=== PATIENT | male | born 1975 | race Caucasian/White ===

== ENCOUNTER → 2020-04-02 08:25 | Outpatient (BNVA) | payer OTHER, SELFPAY | PROVIDERS: PCP Internal Medicine; Visit Provider Student in an Organized Health Care Education/Training Program | DX: Z13.89 Encounter for screening for other disorder (principal) | CPT/HCPCS: Q3014 ==

== ENCOUNTER 2020-04-02 09:02 | Outpatient (REF) | payer OTHER, SELFPAY ==
--- NOTE | 2020-04-02 09:34 | XR_ITS ---
EXAMINATION: XR CHEST CLINICAL INFORMATION: Abnormal immune findings. COMPARISON: None TECHNIQUE: 2 views of the chest were obtained. FINDINGS: No significant abnormality is noted involving the heart, lungs, mediastinum, bony thorax or soft tissues. XR/XR chest 2V IMPRESSION: No acute disease.
[2020-04-02 10:02] LABS: MANUAL DIFF FLAG NO
[2020-04-02 10:08] LABS: Basophils Absolute Auto 0.1 X10*3/uL (0.0-0.2); Basophils Percent Auto 0.7 % (0-2); Eosinophils Absolute Auto 0.1 X10*3/uL (0.0-0.4); Eosinophils Percent Auto 1.9 % (0-4); Hematocrit 44.7 % (42-52); Hemoglobin 15.4 g/dl (14.0-18.0); Imm Gran Abs Auto 0.06 X10*3/uL (0.00-0.03); Imm Gran Pct Auto 0.8 % (0.0-0.4); Lymphocytes Absolute Auto 1.9 X10*3/uL (1.2-4.9); Lymphocytes Percent Auto 25.5 % (20-40); Mean Corpuscular HGB Conc 34.5 g/dl (31.0-36.0); Mean Corpuscular Hemoglobin 30.6 pg (27.0-33.0); Mean Corpuscular Volume 88.7 fL (80-98); Mean Platelet Volume 11.4 fL (9.4-12.4); Monocytes Absolute Auto 0.4 X10*3/uL (0.1-1.2); Monocytes Percent Auto 5.6 % (2-11); Neutrophils Absolute Auto 4.9 X10*3/uL (2.0-8.3); Neutrophils Percent Auto 65.5 % (45-73); Platelet Count 235 X10*3/uL (160-400); Red Blood Count 5.04 X10*6/uL (4.60-5.80); Red Cell Distribution Width 11.7 % (11.0-16.0); White Blood Count 7.5 X10*3/uL (4.8-10.8)
[2020-04-02 10:42] LABS: Alanine Aminotransferase 44 U/L (0-40); Albumin Level 4.7 g/dL (3.5-5.0); Alkaline Phosphatase 91 U/L (39-117); Anion Gap 13 (12-20); Aspartate Amino Transferase 23 U/L (5-37); Bilirubin Total 0.5 mg/dL (0.0-1.0); Blood Urea Nitrogen 14 mg/dL (9-16); C Reactive Protein 0.23 mg/dL (< or = 0.50); Calcium 9.4 mg/dL (8.4-10.2); Carbon Dioxide 27 mmol/L (22-29); Chloride 104 mmol/L (96-108); Estimated Glomerular Filt Rate > 60; Glucose Random 87 mg/dL (60-115); Potassium 4.3 mmol/l (3.3-5.1); Sodium 140 mmol/L (135-145); Total Protein 7.8 g/dL (6.5-8.0)
[2020-04-02 11:31] LABS: Erythrocyte Sedimentation Rate 7 MM/HR (0-15)
== END 2020-04-02 09:03 | disposition home or self-care (01) ==
LOC: HO.LAB 09:02
PROVIDERS: Visit Provider Student in an Organized Health Care Education/Training Program
DX: R76.8 Other specified abnormal immunological findings in serum (principal)
CPT/HCPCS: 36415; 71046; 80053; 85025; 85652; 86140

== ENCOUNTER → 2020-05-05 10:03 | Outpatient (BNVA) | payer OTHER, SELFPAY | PROVIDERS: PCP Internal Medicine; Visit Provider Student in an Organized Health Care Education/Training Program | DX: R22.1 Localized swelling, mass and lump, neck (principal); R76.8 Other specified abnormal immunological findings in serum; M19.93 Secondary osteoarthritis, unspecified site; E83.110 Hereditary hemochromatosis | CPT/HCPCS: 99212 ==

== ENCOUNTER 2020-05-08 11:24 | Outpatient (REF) | payer OTHER, SELFPAY ==
--- NOTE | ~2020-05-08 | US_ITS ---
EXAMINATION: US SOFT TISSUE OF THE NECK CLINICAL INFORMATION: Localized swelling, lump. COMPARISON: None TECHNIQUE: Linear transducer grayscale and color Doppler examination of the posterior lateral right neck. FINDINGS: No abnormality is seen in the area indicated by the patient. There is a small lymph node in the right posterior lateral neck. This measures 1.4 x 0.4 x 1 cm in transverse dimension. This demonstrates normal ultrasound morphology and flow. US/US soft tiss head and/or neck IMPRESSION: No ultrasound abnormality seen in the area indicated by the patient. There is a normal-appearing lymph node in the posterior lateral right neck.
== END 2020-05-08 11:25 | disposition home or self-care (01) ==
LOC: HO.HMGCX 11:24
PROVIDERS: Visit Provider Student in an Organized Health Care Education/Training Program
DX: R22.1 Localized swelling, mass and lump, neck (principal)
CPT/HCPCS: 76536

== ENCOUNTER 2020-05-29 08:38 | Outpatient (REF) | payer OTHER, SELFPAY ==
--- NOTE | ~2020-05-29 | CT_ITS ---
EXAMINATION: CT SOFT TISSUE NECK WITH CONTRAST CLINICAL INFORMATION: Localized swelling, mass and lump, neck. COMPARISON: None TECHNIQUE: Following the administration of 100 mL of Omnipaque 300 intravenous contrast, helical imaging was performed in the axial plane with generation of coronal and sagittal reformatted images. This CT examination was performed using dose optimization techniques as appropriate, variously including the following: *Automated exposure control *Adjustment of mA and/or kV according to patient size (this includes techniques or standardized protocols for targeted exams where dose is matched to indication/reason for exam; i.e. extremities or head) *Use of iterative reconstruction technique DLP: 413 mGy-cm FINDINGS: The pharyngeal contours appear normal. The palatine tonsils appear symmetric. No base of tongue lesion is seen. There is no oral cavity abnormality. The laryngeal contours appear normal with symmetric vocal folds. The bilateral parotid and submandibular glands appear normal. No enlarged or suspicious appearing cervical lymph nodes are seen. Subjacent to the skin marker was placed just posterior to the right sternomastoid muscle is a top normal but nonenlarged 9 mm lymph node. No abnormality is seen subjacent to the skin markers placed in the right and left premandibular regions. The upper lungs are clear. The major neck vessels demonstrate grossly normal enhancement. No significant degenerative changes seen within the spine. CT/CT soft tissue neck w con IMPRESSION: No neck mass or suspicious lymphadenopathy identified. No evidence of inflammatory stranding with special attention to the skin markers.
== END 2020-05-29 08:39 | disposition home or self-care (01) ==
LOC: HO.CT 08:38
PROVIDERS: PCP Internal Medicine; Visit Provider Student in an Organized Health Care Education/Training Program
DX: R22.1 Localized swelling, mass and lump, neck (principal)
CPT/HCPCS: 70491; Q9967

== ENCOUNTER 2020-08-31 07:19 | Outpatient (REF) | payer OTHER, SELFPAY ==
[2020-08-31 08:43] LABS: MANUAL DIFF FLAG NO
[2020-08-31 08:48] LABS: Basophils Percent Auto 0.4 % (0-2); Eosinophils Absolute Auto 0.2 X10*3/uL (0.0-0.4); Eosinophils Percent Auto 3.1 % (0-4); Hematocrit 45.8 % (42-52); Imm Gran Abs Auto 0.01 X10*3/uL (0.00-0.03); Imm Gran Pct Auto 0.1 % (0.0-0.4); Lymphocytes Absolute Auto 1.9 X10*3/uL (1.2-4.9); Lymphocytes Percent Auto 28.4 % (20-40); Mean Corpuscular HGB Conc 32.8 g/dl (31.0-36.0); Mean Corpuscular Hemoglobin 28.6 pg (27.0-33.0); Mean Corpuscular Volume 87.4 fL (80-98); Mean Platelet Volume 11.7 fL (9.4-12.4); Monocytes Absolute Auto 0.5 X10*3/uL (0.1-1.2); Monocytes Percent Auto 6.7 % (2-11); Neutrophils Absolute Auto 4.2 X10*3/uL (2.0-8.3); Neutrophils Percent Auto 61.3 % (45-73); Platelet Count 210 X10*3/uL (160-400); Red Blood Count 5.24 X10*6/uL (4.60-5.80); Red Cell Distribution Width 12.4 % (11.0-16.0); White Blood Count 6.8 X10*3/uL (4.8-10.8)
[2020-08-31 09:22] LABS: Alanine Aminotransferase 25 U/L (0-40); Albumin Level 4.4 g/dL (3.5-5.0); Alkaline Phosphatase 97 U/L (39-117); Anion Gap 15 (12-20); Aspartate Amino Transferase 19 U/L (5-37); Bilirubin Total 0.7 mg/dL (0.0-1.0); Blood Urea Nitrogen 15 mg/dL (9-16); C Reactive Protein 0.14 mg/dL (< or = 0.50); Calcium 9.5 mg/dL (8.4-10.2); Carbon Dioxide 25 mmol/L (22-29); Chloride 106 mmol/L (96-108); Estimated Glomerular Filt Rate > 60; Glucose Random 87 mg/dL (60-115); Potassium 4.7 mmol/L (3.3-5.1); Sodium 141 mmol/L (135-145); Total Protein 7.3 g/dL (6.5-8.0)
[2020-08-31 09:47] LABS: Erythrocyte Sedimentation Rate 7 MM/HR (0-15)
== END 2020-08-31 07:20 | disposition home or self-care (01) ==
LOC: HO.LAB 07:19
PROVIDERS: PCP Internal Medicine; Visit Provider Student in an Organized Health Care Education/Training Program
DX: R76.8 Other specified abnormal immunological findings in serum (principal)
CPT/HCPCS: 36415; 80053; 85025; 85652; 86140

== ENCOUNTER → 2020-09-02 10:42 | Outpatient (BNVA) | payer OTHER, SELFPAY | PROVIDERS: PCP Internal Medicine; Visit Provider Student in an Organized Health Care Education/Training Program | DX: R22.1 Localized swelling, mass and lump, neck (principal); R76.8 Other specified abnormal immunological findings in serum; M19.93 Secondary osteoarthritis, unspecified site; M75.31 Calcific tendinitis of right shoulder; E83.110 Hereditary hemochromatosis | CPT/HCPCS: 99212 ==

== ENCOUNTER 2021-10-11 09:14 | Emergency (ER) | payer OTHER, SELFPAY ==
[2021-10-11] VITALS (8 sets, daily range): BP systolic 119–134; BP diastolic 72–96; PULSE 94–109; RESP 12–20; TEMP 37.3; O2SAT 96–98; BMI 31.4
--- NOTE | 2021-10-11 | ECG_ITS ---
Test Reason : covid / weakness Blood Pressure : / mmHG Vent. Rate : 110 BPM Atrial Rate : 110 BPM P-R Int : 144 ms QRS Dur : 182 ms QT Int : 394 ms P-R-T Axes : 000 142 -23 degrees QTc Int : 533 ms Wide complex tachycardia Ventricular tachycardia Abnormal ECG When compared with ECG of 11-OCT-2021 09:54, No significant changes seen Referred By: Peng Almazan Electronically Signed By:ANDREA CONNOLLY
--- NOTE | 2021-10-11 | ECG_ITS ---
Test Reason : possible syncope Blood Pressure : / mmHG Vent. Rate : 109 BPM Atrial Rate : 000 BPM P-R Int : 000 ms QRS Dur : 178 ms QT Int : 390 ms P-R-T Axes : 000 148 -18 degrees QTc Int : 525 ms Wide QRS rhythm Ventricular tachycardia Abnormal ECG No previous ECGs available Referred By: Generic ED Physician Electronically Signed By:ANDREA CONNOLLY
--- NOTE | ~2021-10-11 | XR_ITS ---
EXAMINATION: XR CHEST CLINICAL INFORMATION: Cough. COMPARISON: 04/02/2020 chest radiographs. TECHNIQUE: Frontal view of the chest was obtained. FINDINGS: No significant abnormality is noted involving the heart, lungs, mediastinum, bony thorax or soft tissues. XR/XR chest 1V IMPRESSION: No acute cardiopulmonary process.
--- NOTE | 2021-10-11 10:20 | ED.GENADULT ---
HPI - General Adult General Chief complaint: Syncope Stated complaint: COVID+/Dizzy Time Seen by Provider: 10/11/21 10:03 Source: patient Mode of arrival: ambulatory Limitations: no limitations History of Present Illness HPI narrative: 45 yo covid positive presented c/o weakness near syncope,he is ambulatory to the ED,found in widw complex tAchycardia Onset (ago): hour(s) (3) Radiation: non-radiation Severity: mild Quality: burning Relieving factors: none Exacerbating factors: none Related Data Home Medications Medication Instructions Recorded Confirmed albuterol sulfate 90 mcg/actuation 2 puff inhalation Q6H PRN 05/05/20 aerosol inhaler buspirone 10 mg tablet 10 mg PO TID 05/05/20 cholecalciferol (vitamin D3) 50 50 mcg PO DAILY 05/05/20 mcg (2,000 unit) capsule diltiazem HCl 300 mg capsule,24 300 mg PO DAILY 05/05/20 hr,extended release montelukast 10 mg tablet 10 mg PO DAILY 05/05/20 naproxen sodium 550 mg tablet 550 mg PO BID PRN 05/05/20 tramadol 50 mg tablet 50 mg PO DAILY PRN 05/05/20 Previous Rx's Medication Instructions Recorded gabapentin 300 mg capsule 300 mg PO BEDTIME #90 caps 09/30/20 hydroxychloroquine 200 mg tablet 400 mg PO DAILY #180 tabs 09/30/20 Allergies Allergy/AdvReac Type Severity Reaction Status Date / Time No Known Allergies Allergy Verified 09/02/20 10:47 Review of Systems Review of Systems: Yes all other systems are reviewed and are negative Eyes: Eyes: Reports no additional eye complaints ENT: Reports system reviewed and no additional complaints, except as documented Cardiovascular: Cardiovascular: Reports no additional cardiovascular complaints and Reports rapid heart rate Respiratory: Respiratory: Reports no additional respiratory complaints [facility] Past Medical History Medical History Hereditary hemochromatosis Rheumatoid factor positive Secondary osteoarthritis Family History Family History Maternal Grandfather HTN (hypertension) Mother Liver problem Father CVD (cardiovascular disease) Social History Social History Alcohol intake: never Patient Tobacco Use Status: Never used Tobacco e-Cigarette/Vaping Use: Never Used Advance Directives: No Advance Directives Information Provided: Yes Physical Exam ED Vital Signs: Vital Signs - 24 hr 10/11/21 09:34 10/11/21 10:14 10/11/21 11:28 Temperature 99.1 F Pulse Rate 107 H 109 H 99 Respiratory Rate 18 16 14 Blood Pressure 119/72 128/74 133/81 Pulse Oximetry 96 97 97 Oxygen Delivery Method Room Air Room Air Room Air 10/11/21 12:31 10/11/21 13:05 10/11/21 15:01 Temperature Pulse Rate 98 94 107 H Respiratory Rate 12 16 20 Blood Pressure 133/87 127/79 125/81 Pulse Oximetry 98 96 98 Oxygen Delivery Method Room Air Room Air Room Air BMI result Body Mass Index 31.4 Const General: cooperative and no acute distress HENMT Head: Yes normal to inspection Ears: hearing grossly normal bilaterally Face and sinus: Yes normal facial exam Mouth: Normal oral and palatal mucosa present Throat: Yes posterior oropharynx normal Neck Neck: Yes normal visual inspection and Yes full ROM Thyroid: Thyroid normal Chest Chest palpation & inspection: normal inspection of the chest Resp Effort & Inspection: normal respiratory effort and able to speak in complete sentences Auscultation: clear to auscultation bilaterally Cardio Jugular venous distension: no JVD Rate: tachycardic GI Inspection: Yes normal to inspection Palpation (GI): Soft to palpation, not firm, nontender and no guarding Skin General skin exam: no rashes or lesions noted and elasticity normal Lesions: no lesions Rashes: no rashes Course Course Course Narrative: I spoke with store warehouse associate Dr Lopez he thinks is V. Tach he recommend IV Amiodarone and transfer to [facility] Reevaluation(s) Reevaluation #1: I called [facility] visitor services coordinator waiting from call back from [facility] Cardiology Time: 12:58 Reevaluation #2: Spoke with store warehouse associate at [facility] Dr Li she will call me back I sent her the EKG via Phone Reevaluation #3: Accepted at [facility] telemetry spoke with Dr Puentes (hospitalist) and store warehouse associate Dr Li. We are waiting for bed Time: 14:53 Additional Reevaluation(s): 15:30 bed available at [facility], I will be off shift at 4 PM I will let the incoming attending aware of the case Medical Decision Making Lab Data Result diagrams: 10/11/21 10:36 10/11/21 10:36 Labs: Lab Results 10/11/21 10/11/21 10/11/21 Range/Units 10:36 10:36 10:36 WBC 4.3 L (4.8-10.8) X10*3/uL RBC 5.42 (4.60-5.80) X10*6/uL Hgb 16.0 (14.0-18.0) g/dl Hct 46.5 (42.0-52.0) % MCV 85.8 (80.0-98.0) fL MCH 29.5 (27.0-33.0) pg MCHC 34.4 (31.0-36.0) g/dl RDW 12.4 (11.0-16.0) % Plt Count 163 (160-400) X10*3/uL MPV 10.9 (9.4-12.4) fL Immature Gran % (Auto) 0.5 H (0.0-0.4) % Neut % (Auto) 71.4 (45-73) % Lymph % (Auto) 17.1 L (20-40) % Fleming % (Auto) 10.8 (2-11) % Eos % (Auto) 0.0 (0-4) % Baso % (Auto) 0.2 (0-2) % Lymph # (Auto) 0.7 L (1.2-4.9) X10*3/uL Fleming # (Auto) 0.5 (0.1-1.2) X10*3/uL Eos # (Auto) 0.0 (0.0-0.4) X10*3/uL Baso # (Auto) 0.0 (0.0-0.2) X10*3/uL Abs Immat Gran (auto) 0.02 (0.00-0.03) X10*3/uL Absolute Neuts (auto) 3.1 (2.0-8.3) x10*3/uL Absolute Nucleated RBC 0.000 (0.0-0.012) X10*3/uL Nucleated RBC % (auto) 0.0 (0.0-0.2) /100WBC Sodium 136 (135-145) mmol/L Potassium 3.8 (3.3-5.1) mmol/L Chloride 103 (96-108) mmol/L Carbon Dioxide 26 (22-29) mmol/L Anion Gap 11 L (12-20) BUN 14 (9-16) mg/dL Creatinine 1.08 (0.5-1.4) mg/dL Estim Creat Clear Calc 91.8 Estimated GFR > 60 Fasting Glucose 112 H (60-99) mg/dL Calcium 8.8 D (8.4-10.2) mg/dL Magnesium (1.6-2.6) mg/dL Total Bilirubin 0.3 (0.0-1.0) mg/dL Direct Bilirubin < 0.2 (0.0-0.5) mg/dL AST 30 D (5-37) U/L ALT 41 H (0-40) U/L Alkaline Phosphatase 97 (39-117) U/L Troponin I High Sens < 3.5 (<3.5-35.0) ng/L Total Protein 7.4 (6.5-8.0) g/dL Albumin 4.3 (3.5-5.0) g/dL Triglycerides 124 mg/dL Cholesterol 235 mg/dL LDL Cholesterol, Calc 174 mg/dl HDL Cholesterol 37 mg/dL COVID-19 ([facility]) (Negative) COVID-19 Clin Com 10/11/21 10/11/21 10/11/21 Range/Units 10:36 13:10 13:10 WBC (4.8-10.8) X10*3/uL RBC (4.60-5.80) X10*6/uL Hgb (14.0-18.0) g/dl Hct (42.0-52.0) % MCV (80.0-98.0) fL MCH (27.0-33.0) pg MCHC (31.0-36.0) g/dl RDW (11.0-16.0) % Plt Count (160-400) X10*3/uL MPV (9.4-12.4) fL Immature Gran % (Auto) (0.0-0.4) % Neut % (Auto) (45-73) % Lymph % (Auto) (20-40) % Fleming % (Auto) (2-11) % Eos % (Auto) (0-4) % Baso % (Auto) (0-2) % Lymph # (Auto) (1.2-4.9) X10*3/uL Fleming # (Auto) (0.1-1.2) X10*3/uL Eos # (Auto) (0.0-0.4) X10*3/uL Baso # (Auto) (0.0-0.2) X10*3/uL Abs Immat Gran (auto) (0.00-0.03) X10*3/uL Absolute Neuts (auto) (2.0-8.3) x10*3/uL Absolute Nucleated RBC (0.0-0.012) X10*3/uL Nucleated RBC % (auto) (0.0-0.2) /100WBC Sodium (135-145) mmol/L Potassium (3.3-5.1) mmol/L Chloride (96-108) mmol/L Carbon Dioxide (22-29) mmol/L Anion Gap (12-20) BUN (9-16) mg/dL Creatinine (0.5-1.4) mg/dL Estim Creat Clear Calc Estimated GFR Fasting Glucose (60-99) mg/dL Calcium (8.4-10.2) mg/dL Magnesium 2.0 (1.6-2.6) mg/dL Total Bilirubin (0.0-1.0) mg/dL Direct Bilirubin (0.0-0.5) mg/dL AST (5-37) U/L ALT (0-40) U/L Alkaline Phosphatase (39-117) U/L Troponin I High Sens < 3.5 (<3.5-35.0) ng/L Total Protein (6.5-8.0) g/dL Albumin (3.5-5.0) g/dL Triglycerides mg/dL Cholesterol mg/dL LDL Cholesterol, Calc mg/dl HDL Cholesterol mg/dL COVID-19 ([facility]) Positive A (Negative) COVID-19 Clin Com See Note ECG Data Attestation: I personally reviewed and interpreted this ECG as follows: Prior ECG tracings: not available for review Interpretation: WIDE COMPLEX TACHYCARDIA 109 Critical Care Time Critical Care Time Critical Care Time: Yes Total Critical Care Time: 60 Attestation: Iv amiodarone,multiple phone call with our store warehouse associate/store warehouse associate at [facility] Discharge Plan Discharge Clinical Impression: Accelerated idioventricular rhythm Patient Disposition: Xfer Acute Care Hospital Transfer Details: Xfer requested by our store warehouse associate Dr Lopez Prescriptions: No [facility] gabapentin 300 mg capsule 300 mg PO BEDTIME Qty: 90 1RF hydroxychloroquine 200 mg tablet 400 mg PO DAILY Qty: 180 3RF diltiazem HCl 300 mg capsule,extended release 24 hr 300 mg PO DAILY montelukast 10 mg tablet 10 mg PO DAILY buspirone 10 mg tablet 10 mg PO TID albuterol sulfate 90 mcg/actuation HFA aerosol inhaler 2 puff inhalation Q6H PRN cholecalciferol (vitamin D3) 50 mcg (2,000 unit) capsule 50 mcg PO DAILY tramadol 50 mg tablet 50 mg PO DAILY PRN naproxen sodium 550 mg tablet 550 mg PO BID PRN
[2021-10-11 10:46] LABS: MANUAL DIFF FLAG NO
[2021-10-11 10:50] LABS: Basophils Percent Auto 0.2 % (0-2); Hematocrit 46.5 % (42.0-52.0); Imm Gran Abs Auto 0.02 X10*3/uL (0.00-0.03); Imm Gran Pct Auto 0.5 % (0.0-0.4); Lymphocytes Absolute Auto 0.7 X10*3/uL (1.2-4.9); Lymphocytes Percent Auto 17.1 % (20-40); Mean Corpuscular HGB Conc 34.4 g/dl (31.0-36.0); Mean Corpuscular Hemoglobin 29.5 pg (27.0-33.0); Mean Corpuscular Volume 85.8 fL (80.0-98.0); Mean Platelet Volume 10.9 fL (9.4-12.4); Monocytes Absolute Auto 0.5 X10*3/uL (0.1-1.2); Monocytes Percent Auto 10.8 % (2-11); Neutrophils Absolute Auto 3.1 x10*3/uL (2.0-8.3); Neutrophils Percent Auto 71.4 % (45-73); Platelet Count 163 X10*3/uL (160-400); Red Blood Count 5.42 X10*6/uL (4.60-5.80); Red Cell Distribution Width 12.4 % (11.0-16.0); White Blood Count 4.3 X10*3/uL (4.8-10.8)
[2021-10-11] MEDS: 0.9 % Sodium Chloride 1,000 ML 999 ML IVCONT (10:50)
[2021-10-11 11:18] LABS: Alanine Aminotransferase 41 U/L (0-40); Albumin Level 4.3 g/dL (3.5-5.0); Alkaline Phosphatase 97 U/L (39-117); Anion Gap 11 (12-20); Aspartate Amino Transferase 30 U/L (5-37); Bilirubin Direct < 0.2 mg/dL (0.0-0.5); Bilirubin Total 0.3 mg/dL (0.0-1.0); Blood Urea Nitrogen 14 mg/dL (9-16); Calcium 8.8 mg/dL (8.4-10.2); Carbon Dioxide 26 mmol/L (22-29); Chloride 103 mmol/L (96-108); Cholesterol 235 mg/dL; Creatinine Clr Calc Pharmacy 91.8; Estimated Glomerular Filt Rate > 60; Glucose Fasting 112 mg/dL (60-99); HDL Cholesterol 37 mg/dL; LDL Cholesterol Calculated 174 mg/dl; Potassium 3.8 mmol/L (3.3-5.1); Sodium 136 mmol/L (135-145); Total Protein 7.4 g/dL (6.5-8.0); Triglycerides 124 mg/dL; Troponin-I High Sensitivity < 3.5 ng/L (<3.5-35.0)
--- NOTE | 2021-10-11 12:00 | PC.NURSE ---
Pt resistive to care orders despite this RN and Dr Almazan to bedside for education on current heart rhythm. Amiodarone loading dose given and and attempting to start infusion however pt refusing at this time. HR 100. Pt denies any assocuiated sx. Skin pink warm and dry. Anxious but declines medicine to assist in anxiety at this time. Dr Almazan awaiting call back from [facility]. Sat 99% on room air
[2021-10-11] MEDS: Amiodarone HCL 900 MG in 0.9 % Sodium Chloride 500 ML 34.53 MG IVCONT (12:29)
--- NOTE | 2021-10-11 12:33 | PC.NURSE ---
Pt now agreeable to Amiodarone gtt. Started as reflected in EMAR at 1mg/min. Pt continues to be anxious, education and reassurance provided. Rhythm remains unchanged, pt continues to be asymptomatic. VSS. Awaiting plan from [facility] and dispo
--- NOTE | 2021-10-11 12:51 | PC.NURSE ---
@ 1251PM CALL RECEIVED FORM [facility] LINE ASKING TO SPEAK WITH DR REUBEN ALEXIS TAKES OVER CALL RIGHT AWAY
[2021-10-11 13:35] LABS: COVID-19 Test Positive (Negative); IDNOW Serial# 16C4AD1C
[2021-10-11 13:40] LABS: Troponin-I High Sensitivity < 3.5 ng/L (<3.5-35.0)
--- NOTE | 2021-10-11 15:15 | PC.NURSE ---
Pt accepted at [facility], awaiting bed assgn at this time. Remains asymptomatic at this time. Using urinal as needed.
--- NOTE | 2021-10-11 15:18 | PC.NURSE ---
@ [phone] CALL RECEIVED FROM [facility] PT [place] LINE WITH ROOM ASSIGNMENT [address], ROOM 6277 RN TO RN: [phone]
--- NOTE | 2021-10-11 15:33 | PC.NURSE ---
Report to Shanika at [facility]
--- NOTE | 2021-10-11 16:40 | PC.NURSE ---
At this time pt request to have Amiodarone stopped. When asked why pt states I just dont want it, I feel jittery HR 105-110. ther vitals stable. Pt educated on medication at this time without change. Dr Hitchcock notified of pt request. Pt still agreeable to [facility] transfer, awaits ambulance.
--- NOTE | 2021-10-11 20:21 | PC.NURSE ---
This US called [facility] at 20:15 to get an update on transport unit and [facility] stated that they passed the call to alert and gave the eta of 10-15 due to the transport unit [place]. [facility] [place] [id number]
== END 2021-10-11 20:58 | disposition short-term general hospital (02) ==
PROVIDERS: Emergency Provider Emergency Medicine
DX: U07.1 COVID-19 (principal); R55 Syncope and collapse; R42 Dizziness and giddiness; Z79.899 Other long term (current) drug therapy
CPT/HCPCS: 36415; 71045; 80048; 80061; 80076; 83735; 84484; 85025; 87635; 93005; 96361; 96365; 96366; 96375; 99285; J0282